=== PATIENT | female | born 1955 | race Caucasian/White ===

== ENCOUNTER 2018-03-12 22:07 | Emergency (ER) | payer OTHER ==
[~2018-03-12] VITALS: Ht 162.6 cm; Wt 75.7 kg
--- NOTE | 2018-03-12 22:20 | NUR ---
Pt biba for right shoulder and right elbow pain, 10/10 on scale, following a fall at home. Pt is A, O/4, unable to move her right arm at this time. Awaiting MD for eval at .
--- NOTE | 2018-03-12 22:37 | NUR ---
Xray of Rt shoulder in progress
[2018-03-12] MEDS ORDERED: HYDROCODONE/APAP 5/325MG 1 EACH TABLET ONE ×2 (22:39→22:51)
[2018-03-12] MEDS ORDERED: HYDROCODONE/APAP 5/325MG 1 EACH TABLET PO ONE (23:00)
--- NOTE | 2018-03-12 23:15 | NUR ---
Pt states her pain has subsided. Kept warm and comfortable in bed.
--- NOTE | 2018-03-12 23:50 | NUR ---
Pt was notified of DC; sling placed on her right Arm.
--- NOTE | 2018-03-12 23:55 | NUR ---
Patient discharged to home in stable condition. Written and verbal after care instructions , prescription and copy of Xray CD given. Patient verbalizes understanding of instruction. Pt ambulatory with a steady gait.
[2018-03-13 00:06] VITALS: BP 91/56
== END 2018-03-13 | disposition home or self-care (01) ==
LOC: ER 22:09
DX: S52.124A Nondisplaced fracture of head of right radius, initial encounter for closed fracture (principal); F32.9 Major depressive disorder, single episode, unspecified; E78.00 Pure hypercholesterolemia, unspecified; E03.9 Hypothyroidism, unspecified; W01.0XXA Fall on same level from slipping, tripping and stumbling without subsequent striking against object, initial encounter; Y93.89 Activity, other specified; Y92.89 Other specified places as the place of occurrence of the external cause; Y99.8 Other external cause status
CPT/HCPCS: 73030; 73080; 99283; A4606; Z7610